=== PATIENT | male | born 1980 | race Caucasian/White ===

== ENCOUNTER 2019-08-30 12:30 | Emergency (ER) | payer OTHER ==
[~2019-08-30] VITALS: Ht 175.3 cm; Wt 82.0 kg
[2019-08-30] MEDS ORDERED: ATOR40TA78 PO (12:49)
[2019-08-30] MEDS ORDERED: CARV6.252 PO (12:49)
[2019-08-30] MEDS ORDERED: LISI-167 PO (12:49)
[2019-08-30] MEDS ORDERED: ASPI81TA45 PO (12:49)
[2019-08-30] MEDS ORDERED: CLOP75TA52 PO (12:49)
--- NOTE | 2019-08-30 12:56 | NUR ---
PT HAS CO CHEST PAIN STARTING YESTERDAY. PT STATES ITS RADIATES TO LEFT BACK SIDE W SLIGHT SOB. NO N/V. PT HAS HX OF PA W STENTS IN 2019. PT IS COMPLIANT W ALL MEDICATIONS. 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 VSS, EKG IN TRIAGE
[2019-08-30] MEDS ORDERED: ASPIRIN 81 MG TABLET CHEW ONE (13:47)
[2019-08-30] MEDS ORDERED: KETOROLAC 30 MG/1 ML ONE (13:48)
[2019-08-30] MEDS ORDERED: KETOROLAC 30 MG/1 ML IVPush ONE (14:00)
[2019-08-30] MEDS ORDERED: SODIUM CHLORIDE FLUSH 10ML SYR IVF ONE (14:00)
[2019-08-30] MEDS ORDERED: ASPIRIN 81 MG TABLET CHEW PO ONE (14:00)
--- NOTE | 2019-08-30 14:13 | NUR ---
MEDICATED PER ORDERS. IV ESTABLISHED. LABS DRAWN
[2019-08-30 14:25] LABS: ALBUMIN 4.1 g/dL (3.4-5.0); ANION GAP 7 mmol/L (5-15); CALCIUM 9.1 mg/dL (8.5-10.1); CHLORIDE 108 mmol/L (98-107); CREATININE 1.15 mg/dL (0.7-1.3)
[2019-08-30 14:29] LABS: BASOPHILS # (AUTO) 0.05 x10^3/uL (0-0.1); BASOPHILS % (AUTO) 1 % (0-1); EOSINOPHILS # (AUTO) 0.18 x10^3/uL (0-0.4); EOSINOPHILS % (AUTO) 3 % (1-7); LYMPHOCYTES # (AUTO) 2.19 x10^3/uL (1-3.4); LYMPHOCYTES % (AUTO) 29 % (22-44); MD NO; MEAN CORPUSCULAR HEMOGLOBIN 32.4 pg (27.5-34.5); MEAN CORPUSCULAR HGB CONC 34.3 g/dL (33.2-36.2); MEAN CORPUSCULAR VOLUME 94.6 fL (81-97); MEAN PLATELET VOLUME 8.4 fL (7.4-10.4); MONOCYTES # (AUTO) 0.57 x10^3/uL (0.2-0.8); MONOCYTES % (AUTO) 8 % (2-9); NEUTROPHILS # (AUTO) 4.52 x10^3/uL (1.8-6.8); NEUTROPHILS % (AUTO) 60 % (42-75); PLATELET COUNT 292 x10^3/uL (130-400); RED CELL DISTRIBUTION WIDTH 13.2 % (9.4-14.8); TROPONIN I < 0.015 ng/mL (0.000-0.045)
--- NOTE | 2019-08-30 15:00 | NUR ---
PT AMBULATED TO BATHROOM W STEADY GATE. WATER GIVEN, NO NEEDS AT THIS TIME
--- NOTE | 2019-08-30 16:00 | NUR ---
VSS, NO NEEDS AT THIS TIME. PT DECIDING IF HE WANTS TO BE ADMITTED.
--- NOTE | 2019-08-30 17:11 | NUR ---
PT AGREES TO AMA, DOES NOT WANT TO BE ADMIT. AWARE
[2019-08-30 17:13] VITALS: BP 119/75
== END 2019-08-30 17:17 ==
LOC: ED 12:56 → UNDOADMIN 15:26 → EDIP 15:26 → ED 17:17
DX: R07.2 Precordial pain (principal); R51 Headache; I25.2 Old myocardial infarction; Z87.891 Personal history of nicotine dependence
CPT/HCPCS: 36415; 71045; 80048; 82040; 84484; 85025; 93005; 96372; 99285; J1885